=== PATIENT | male | born 1930 | race American Indian/Alaskan Native ===

== ENCOUNTER 2019-03-03 10:07 | Emergency (ER) | payer MEDICARE ==
[2019-03-03] MEDS ORDERED: ASPIRIN 325 MG TAB PO ONE (10:28)
--- NOTE | 2019-03-03 11:03 | XRay Report ---
CHEST 2 VIEWS INDICATION: Chest Pain. COMPARISON: None FINDINGS: Support devices: None. Heart: Within normal limits. Lungs/pleura: No acute air space or interstitial disease. No pneumothorax. Trace left pleural effusi on is suspected. Additional findings: None. IMPRESSION: Trace left pleural effusion. Signer Name: Kwame Ramos Jr, MD Signed: 03/03/2019 10:59 AM Workstation Name: [id number]
--- NOTE | 2019-03-03 11:11 | Emergency Department Report ---
ED Chest Pain HPI - General Chief Complaint: Chest Pain Stated Complaint: CHEST PAIN Time Seen by Provider: 03/03/19 10:37 Source: patient, family Mode of arrival: Ambulatory Limitations: Language Barrier - History of Present Illness Initial Comments: 88-year-old male presents to the emergency department with complaint of some midsternal chest pain and shortness of breath that started while he was at [facility] [[email or web address]], nearby, getting blood work done ordered by his PCP, Dr Crawford. Patient has a past mental history of diet-controlled diabetes, GERD, migraines, hy pertension, chronic kidney disease, coronary artery disease with cardiac stents. His district engineer is Dr. Laz Zuniga. He did not take anything for her symptoms prior to presentation. The patient did not take his blood pressure medications this morning in anticipation of having the blood work done. He was found have very elevated blood pressure when it was checked at the lab when the patient's symptoms began. He then took his losartan and Lopressor. No recent travel or sick contacts at home. - Related Data Home Medications Medication Instructions Recorded Confirmed Last Taken AtorvaSTATin [Lipitor] 40 mg PO QHS 04/25/18 03/03/19 04/27/18 08:30 Clopidogrel Bisulfate [Plavix] 75 mg PO DAILY 04/25/18 03/03/19 7 Days Ago ~04/20/18 Hydralazine HCl 50 mg PO QID 04/25/18 03/03/19 04/27/18 08:30 Metoprolol [Lopressor] 100 mg PO QDAY 04/25/18 03/03/19 04/27/18 08:30 Losartan Potassium 100 mg PO QDAY 03/03/19 03/03/19 Unknown Previous Rx's Medication Instructions Recorded Last Taken Type ISOSORBIDE MONOnitrate [Imdur ER] 60 mg PO QDAY #30 tablet 03/03/19 Unknown Rx amLODIPine [Norvasc] 10 mg PO DAILY #30 03/03/19 Unknown Rx Allergies Allergy/AdvReac Type Severity Reaction Status Date / Time No Known Allergies Allergy Verified 04/25/18 14:35 Heart Score - HEART Score History: Slightly suspicious EKG: Non-specific Age: > 65 Risk factors: > 3 risk factors or hx of atherosclerotic disease Troponin: 1-3x normal limit HEART Score: 6 - Critical Actions Critical Actions: 4-6 pts:12-16.6% risk of adverse cardiac event. Should be admitted ED Review of Systems ROS: Stated complaint: CHEST PAIN Other details as noted in HPI Comment: All other systems reviewed and negative Constitutional: denies: chills, fever Eyes: denies: eye pain, vision change ENT: denies: ear pain, throat pain Respiratory: shortness of breath. denies: cough Cardiovascular: chest pain. denies: palpitations Gastrointestinal: denies: abdominal pain, vomiting Genitourinary: denies: dysuria, discharge Musculoskeletal: denies: back pain, arthralgia Skin: denies: rash, lesions Neurological: denies: headache, weakness ED Past Medical Hx - Past Medical History Previous Medical History?: Yes Hx Hypertension: Yes (X 25 YRS) Hx Diabetes: Yes (DIET CONTROLLED) Hx GERD: Yes Hx Renal Disease: Yes (CKD) Hx Headaches / Migraines: Yes (MIGRAINES) Hx Tuberculosis: Yes (POSITIVE SKIN TEST , NO TX , NEGATIVE CXR-20YRS AGO) Hx HIV: No - Surgical History Past Surgical History?: Yes Hx Coronary Stent: Yes (PLACED OVER 20 YRS AGO.) - Social History Smoking Status: Former Smoker Substance Use Type: None - Medications Home Medications: Home Medications Medication Instructions Recorded Confirmed Last Taken Type AtorvaSTATin [Lipitor] 40 mg PO QHS 04/25/18 03/03/19 04/27/18 08:30 History Clopidogrel Bisulfate [Plavix] 75 mg PO DAILY 04/25/18 03/03/19 7 Days Ago History ~04/20/18 Hydralazine HCl 50 mg PO QID 04/25/18 03/03/19 04/27/18 08:30 History Metoprolol [Lopressor] 100 mg PO QDAY 04/25/18 03/03/19 04/27/18 08:30 History ISOSORBIDE MONOnitrate [Imdur ER] 60 mg PO QDAY #30 tablet 03/03/19 Unknown Rx Losartan Potassium 100 mg PO QDAY 03/03/19 03/03/19 Unknown History amLODIPine [Norvasc] 10 mg PO DAILY #30 03/03/19 Unknown Rx ED Physical Exam - General Limitations: Language Barrier - Other Other exam information: GENERAL: The patient is well-developed well-nourished. HENT: Normocephalic. Atraumatic. Patient has moist mucous membranes. EYES: Extraocular motions are intact. NECK: Supple. Trachea is midline. CHEST/LUNGS: Clear to auscultation. There is no respiratory distress noted. HEART/CARDIOVASCULAR: Regular. There is no tachycardia. There is no murmur. ABDOMEN: Abdomen is soft, nontender. Patient has normal bowel sounds. There is no abdominal distention. SKIN: Skin is warm and dry. NEURO: The patient is awake, alert, and oriented. The patient is cooperative. The patient has no focal neurologic deficits. Normal speech. MUSCULOSKELETAL: There is no tenderness or deformity. There is no limitation range of motion. There is no evidence of acute injury. ED Course Vital Signs 03/03/19 03/03/19 03/03/19 10:24 11:43 12:02 Temperature 97.7 F Pulse Rate 83 71 Respiratory 20 16 Rate Blood Pressure 225/102 188/98 Blood Pressure 226/81 [Left] O2 Sat by Pulse 97 96 Oximetry 03/03/19 03/03/19 03/03/19 13:23 13:41 13:42 Temperature Pulse Rate 87 83 83 Respiratory 16 Rate Blood Pressure 194/86 194/86 Blood Pressure 194/86 [Left] O2 Sat by Pulse 96 Oximetry - Reevaluation(s) Reevaluation #1: 03/03/19 15:20 Lab Results 03/03/19 03/03/19 03/03/19 Range/Units 10:50 10:50 10:50 WBC 3.9 L (4.5-11.0) K/mm3 RBC 4.46 (3.65-5.03) M/mm3 Hgb 13.0 (11.8-15.2) gm/dl Hct 39.2 (35.5-45.6) % MCV 88 (84-94) fl MCH 29 (28-32) pg MCHC 33 (32-34) % RDW 15.6 H (13.2-15.2) % Plt Count 175 (140-440) K/mm3 Lymph % (Auto) 19.4 (13.4-35.0) % Posey % (Auto) 9.4 H (0.0-7.3) % Eos % (Auto) 3.4 (0.0-4.3) % Baso % (Auto) 1.2 (0.0-1.8) % Lymph # 0.8 L (1.2-5.4) K/mm3 Posey # 0.4 (0.0-0.8) K/mm3 Eos # 0.1 (0.0-0.4) K/mm3 Baso # 0.0 (0.0-0.1) K/mm3 Seg Neutrophils % 66.6 (40.0-70.0) % Seg Neutrophils # 2.6 (1.8-7.7) K/mm3 D-Dimer 416.43 H (0-234) ng/mlDDU Sodium 141 (137-145) mmol/L Potassium 3.6 (3.6-5.0) mmol/L Chloride 102.1 (98-107) mmol/L Carbon Dioxide 24 (22-30) mmol/L Anion Gap 19 mmol/L BUN 28 H (9-20) mg/dL Creatinine 2.4 H (0.8-1.5) mg/dL Estimated GFR 31 ml/min BUN/Creatinine Ratio 12 % Glucose 118 H (75-100) mg/dL Calcium 9.7 (8.4-10.2) mg/dL Troponin T 0.018 (0.00-0.029) ng/mL NT-Pro-B Natriuret Pep (0-900) pg/mL Triglycerides (2-149) mg/dL Cholesterol (50-199) mg/dL LDL Cholesterol Direct (50-130) mg/dL HDL Cholesterol (40-59) mg/dL Cholesterol/HDL Ratio % 03/03/19 03/03/19 Range/Units 10:50 13:24 WBC (4.5-11.0) K/mm3 RBC (3.65-5.03) M/mm3 Hgb (11.8-15.2) gm/dl Hct (35.5-45.6) % MCV (84-94) fl MCH (28-32) pg MCHC (32-34) % RDW (13.2-15.2) % Plt Count (140-440) K/mm3 Lymph % (Auto) (13.4-35.0) % Posey % (Auto) (0.0-7.3) % Eos % (Auto) (0.0-4.3) % Baso % (Auto) (0.0-1.8) % Lymph # (1.2-5.4) K/mm3 Posey # (0.0-0.8) K/mm3 Eos # (0.0-0.4) K/mm3 Baso # (0.0-0.1) K/mm3 Seg Neutrophils % (40.0-70.0) % Seg Neutrophils # (1.8-7.7) K/mm3 D-Dimer (0-234) ng/mlDDU Sodium (137-145) mmol/L Potassium (3.6-5.0) mmol/L Chloride (98-107) mmol/L Carbon Dioxide (22-30) mmol/L Anion Gap mmol/L BUN (9-20) mg/dL Creatinine (0.8-1.5) mg/dL Estimated GFR ml/min BUN/Creatinine Ratio % Glucose (75-100) mg/dL Calcium (8.4-10.2) mg/dL Troponin T 0.043 H D (0.00-0.029) ng/mL NT-Pro-B Natriuret Pep 875.5 (0-900) pg/mL Triglycerides 58 (2-149) mg/dL Cholesterol 145 (50-199) mg/dL LDL Cholesterol Direct 78 (50-130) mg/dL HDL Cholesterol 66 H (40-59) mg/dL Cholesterol/HDL Ratio 2.19 % - Consultations Consultation #1: I spoke with SHARRON Garcia for [facility] cardiology, and Dr. Lopez, regarding this patient's presentation and lab and imaging results. Since the patient is asymptomatic and pain-free, they feel that the patient is safe for discharge home at this time. They are aware of the slightly elevated second troponin of 0.043 but do not feel it is statistically significant as it is less than 0.1. They have set the patient up for a lexicon stress test to be done on Wednesday and the and then a follow-up appointment with their district engineer, Dr. Zuniga, one week later. 03/03/19 15:18 LETY score - Lety Score Age > 65: (1) Yes Aspirin use within the Past 7 Days: (0) No 3 or more CAD Risk Factors: (1) Yes 2 or more Angina events in past 24 hrs: (0) No Known CAD with more than 50% Stenosis: (0) No Elevated Cardiac Markers: (0) No ST Deviation Greater than 0.5mm: (0) No LETY Score: 2 ED Medical Decision Making - Lab Data Result diagrams: 03/03/19 10:50 03/03/19 10:50 - EKG Data -: EKG Interpreted by Me EKG shows normal: sinus rhythm, axis, intervals (prolonged NC interval), QRS co mplexes, ST-T waves ( t wave inversions to lateral leads) Rate: normal - EKG Data When compared to previous EKG there are: previous EKG unavailable Interpretation: other (sinus rhythm, prolonged NC interval, T-wave inversions to the lateral leads. No ST elevation IL) - Radiology Data Radiology results: image reviewed interpreted by me: Chest x-ray does not show any acute process. There are no pleural effusions, obvious pneumonia and there is no pneumothorax. Ventilation perfusion scan is low probability for a pulmonary embolism. - Medical Decision Making This patient presents after having some transient midsternal chest pain when he was giving blood at the lab prior to arrival. Upon presentation the pain has resolved and he is asymptomatic. He does have some elevated blood pressure but had not taken his blood pressure medications secondary to getting the blood draw done. EKG does not show any signs of ST elevation IL. Chest x-ray does not show any pneumothorax, pneumonia, focal consolidation, or any other obvious acute process. Labs are mostly unremarkable. First troponin negative. The second troponin went up to 0.043 but cardiology is not impressed or concerned. D-dimer slightly elevated an equivocal and therefore ventilation/perfusion scan was done that came back low probability for a pulmonary embolism. He was given some medication and his blood pressure came down to a more reasonable level. He was reevaluated multiple times over multiple hours and remains asymptomatic and stable. Cardiology feels comfortable with the patient's discharge and follow- up outpatient stress test appointment on Wednesday. The patient has been instructed to return to the closest emergency department immediately with any return of his chest pain or with any acute distress. - Differential Diagnosis IL, PE, costochondritis, GERD Critical Care Time: No Critical care attestation.: If time is entered above; I have spent that time in minutes in the direct care of this critically ill patient, excluding procedure time. ED Disposition Clinical Impression: Chest pain Qualifiers: Chest pain type: unspecified Qualified Code(s): R07.9 - Chest pain, unspecified Hypertension Qualifiers: Hypertension type: essential hypertension Qualified Code(s): I10 - Essential (primary) hypertension Disposition: - TO HOME OR SELFCARE Is pt being admited?: No Condition: Stable Instructions: Chest Pain (ED), Hypertension (ED) Additional Instructions: Please follow-up with [facility] heart cardiology in the [place] office on Wednesday03/06/19 at 10:45 AM for a stress test. He will also need to follow-up with Dr. Zuniga in the [place] office one week later, on 03/13/19 at 11:15 AM. Return to the emergency department immediately with any return of your chest pain, or if any acute distress. Prescriptions: ISOSORBIDE MONOnitrate [Imdur ER] 60 mg PO QDAY #30 tablet amLODIPine [Norvasc] 10 mg PO DAILY #30 Referrals: [facility] [Provider Group] - 03/06/19 10:45 am Time of Disposition: 15:23
[2019-03-03 11:25] LABS: Calcium 9.7 mg/dL (8.4-10.2)
[2019-03-03 11:35] LABS: Basophils % (Auto) 1.2 % (0.0-1.8); Eosinophils # (Auto) 0.1 K/mm3 (0.0-0.4); Eosinophils % (Auto) 3.4 % (0.0-4.3); Hematocrit 39.2 % (35.5-45.6); Lymphocytes # (Auto) 0.8 K/mm3 (1.2-5.4); Lymphocytes % (Auto) 19.4 % (13.4-35.0); Mean Corpuscular HGB Conc 33 % (32-34); Mean Corpuscular Volume 88 fl (84-94); Monocytes # (Auto) 0.4 K/mm3 (0.0-0.8); Monocytes % (Auto) 9.4 % (0.0-7.3); Platelet Count 175 K/mm3 (140-440); Red Blood Count 4.46 M/mm3 (3.65-5.03); Red Cell Distribution Width 15.6 % (13.2-15.2)
[2019-03-03] MEDS ORDERED: hydrALAZINE 20 MG/1 ML INJ IV ONE ×2 (11:45→12:35)
--- NOTE | 2019-03-03 12:58 | Nuclear Medicine Report ---
Nuclear medicine ventilation/perfusion lung scan Indication: Shortness of breath Technique: 14.5 mCi of Xenon-133 were given by inhalation. 5.5 mCi of Tc 99m MAA were given by IV. Findings: Comparison with chest radiograph from earlier today. Wash-in, equilibrium, and wash-out phases of ventilation are normal. No air-trapping is seen. No perfusion defects are noted. Impression: Low probability for pulmonary embolism. Signer Name: Zion Pelaez MD Signed: 03/03/2019 12:54 PM Workstation Name: [id number]
[2019-03-03 13:23] VITALS: BP 194/86
[2019-03-03] MEDS ORDERED: amLODIPine 5 MG TAB PO ONE (13:24)
--- NOTE | 2019-03-03 13:30 | Event Note ---
Date: 03/03/19 Pt presented with c/o atypical cp since this morning and hypertensive urgency. ECG with no acute ischemic changes, trop minimally elevated x 1 set, chest pain currently resolved. Obtain second set of Fatimah and if Fatimah remain negative for AMI, pt may discharge from cardiology standpoint. Optimize BPs - initiate norvasc 5mg daily and Imdur 60mg daily. Follow up in our [place] office for lexiscan MPI stress test on 03/06/2019 @ 10:45AM. Follow up in our [place] office with Dr. Zuniga on 03/13/2019 @ 11:15AM. Janette SANDHU NP / DR. LEIVA
[2019-03-03 14:23] LABS: Chol/HDL Ratio 2.19 %
== END 2019-03-03 15:16 | disposition home or self-care (01) ==
LOC: ED 10:07
DX: I12.9 Hypertensive chronic kidney disease with stage 1 through stage 4 chronic kidney disease, or unspecified chronic kidney disease (principal); E11.22 Type 2 diabetes mellitus with diabetic chronic kidney disease; N18.9 Chronic kidney disease, unspecified; Z79.899 Other long term (current) drug therapy; G43.909 Migraine, unspecified, not intractable, without status migrainosus; Z87.891 Personal history of nicotine dependence
CPT/HCPCS: 36415; 71046; 78582; 80048; 80061; 83880; 84484; 85025; 85379; 93005; 93010; 96374; 96376; 99284; A9540; A9558; J0360

== ENCOUNTER 2019-03-07 12:53 | Inpatient (IN) | payer MEDICARE ==
[2019-03-07] MEDS ORDERED: ASPIRIN PO ONE (13:01)
--- NOTE | 2019-03-07 13:36 | XRay Report ---
CHEST 1 VIEW INDICATION / CLINICAL INFORMATION: Chest Pain. COMPARISON: 03/03/2019 FINDINGS: SUPPORT DEVICES: None. HEART / MEDIASTINUM: No significant abnormality. LUNGS / PLEURA: There is a very small left pleural effusion. There is mild basilar atelectasis.. No pneumothorax. ADDITIONAL FINDINGS: No significant additional findings. IMPRESSION: 1. There is a very small left pleural effusion. There is mild left basilar atelectasis. Signer Name: Fly Bee MD Signed: 03/07/2019 1:32 PM Workstation Name: [id number]
--- NOTE | 2019-03-07 14:09 | Emergency Department Report ---
ED Chest Pain HPI - General Chief Complaint: Chest Pain Stated Complaint: CHEST PAIN Time Seen by Provider: 03/07/19 13:19 Source: patient, family, EMS Mode of arrival: Ambulatory Limitations: No Limitations - History of Present Illness Initial Comments: Patient is a 88-year-old male with history of coronary artery disease, status post stent in . Patient presented to the ER complaining of chest pain, substernal to epigastric area for the last 3 days. Patient was seen here 3 days ago and consulted on the patient and patient discharged home to follow-up with his janitor and cleaner. Patient had a VQ scan which showed low probability at that time. Patient family stated that they went to the cardiology office yesterday and had a stress test but they don't know the result. Patient describes his pain as tightness with no radiation. Patient stated that pain is similar to what he had when he came here 3 days ago. Patient denied any fever, chills, cough or shortness of breath. MD Complaint: chest pain -: days(s) Pain Location: epigastric Pain Radiation: none Quality: sharp Improves With: nothing - Related Data Home Medications Medication Instructions Recorded Confirmed Last Taken AtorvaSTATin [Lipitor] 40 mg PO QHS 04/25/18 03/03/19 04/27/18 08:30 Clopidogrel Bisulfate [Plavix] 75 mg PO DAILY 04/25/18 03/03/19 7 Days Ago ~04/20/18 Hydralazine HCl 50 mg PO QID 04/25/18 03/03/19 04/27/18 08:30 Metoprolol [Lopressor] 100 mg PO QDAY 04/25/18 03/03/19 04/27/18 08:30 Losartan Potassium 100 mg PO QDAY 03/03/19 03/03/19 Unknown Previous Rx's Medication Instructions Recorded Last Taken Type ISOSORBIDE MONOnitrate [Imdur ER] 60 mg PO QDAY #30 tablet 03/03/19 Unknown Rx amLODIPine [Norvasc] 10 mg PO DAILY #30 03/03/19 Unknown Rx Allergies Allergy/AdvReac Type Severity Reaction Status Date / Time No Known Allergies Allergy Verified 04/25/18 14:35 Heart Score - HEART Score History: Moderately suspicious EKG: Non-specific Age: > 65 Risk factors: > 3 risk factors or hx of atherosclerotic disease Troponin: < normal limit HEART Score: 6 - Critical Actions Critical Actions: 4-6 pts:12-16.6% risk of adverse cardiac event. Should be admitted ED Review of Systems ROS: Stated complaint: CHEST PAIN Other details as noted in HPI Comment: All other systems reviewed and negative Constitutional: denies: chills, fever Respiratory: denies: cough, shortness of breath, SOB with exertion, wheezing Cardiovascular: chest pain. denies: palpitations Gastrointestinal: abdominal pain. denies: nausea, vomiting Musculoskeletal: denies: back pain Neurological: denies: headache, weakness ED Past Medical Hx - Past Medical History Hx Hypertension: Yes (X 25 YRS) Hx Diabetes: Yes (DIET CONTROLLED) Hx GERD: Yes Hx Renal Disease: Yes (CKD) Hx Headaches / Migraines: Yes (MIGRAINES) Hx Tuberculosis: Yes (POSITIVE SKIN TEST , NO TX , NEGATIVE CXR-20YRS AGO) Hx HIV: No - Surgical History Hx Coronary Stent: Yes (PLACED OVER 20 YRS AGO.) - Social History Smoking Status: Former Smoker Substance Use Type: None - Medications Home Medications: Home Medications Medication Instructions Recorded Confirmed Last Taken Type AtorvaSTATin [Lipitor] 40 mg PO QHS 04/25/18 03/03/19 04/27/18 08:30 History Clopidogrel Bisulfate [Plavix] 75 mg PO DAILY 04/25/18 03/03/19 7 Days Ago History ~04/20/18 Hydralazine HCl 50 mg PO QID 04/25/18 03/03/19 04/27/18 08:30 History Metoprolol [Lopressor] 100 mg PO QDAY 04/25/18 03/03/19 04/27/18 08:30 History ISOSORBIDE MONOnitrate [Imdur ER] 60 mg PO QDAY #30 tablet 03/03/19 Unknown Rx Losartan Potassium 100 mg PO QDAY 03/03/19 03/03/19 Unknown History amLODIPine [Norvasc] 10 mg PO DAILY #30 03/03/19 Unknown Rx ED Physical Exam - General Limitations: No Limitations General appearance: alert, in no apparent distress - Head Head exam: Present: atraumatic, normocephalic, normal inspection - Eye Eye exam: Present: normal appearance, PERRL - ENT ENT exam: Present: normal exam, normal orophraynx, mucous membranes moist - Neck Neck exam: Present: normal inspection, full ROM. Absent: tenderness, meningismus, lymphadenopathy, thyromegaly - Respiratory Respiratory exam: Present: normal lung sounds bilaterally - Cardiovascular Cardiovascular Exam: Present: regular rate, normal rhythm, normal heart sounds - GI/Abdominal GI/Abdominal exam: Present: soft, normal bowel sounds. Absent: distended, tenderness, guarding, rebound, rigid, organomegaly, mass, bruit, pulsatile mass, hernia - Extremities Exam Extremities exam: Present: normal inspection, full ROM, normal capillary refill. Absent: tenderness, pedal edema, joint swelling, calf tenderness - Back Exam Back exam: Present: normal inspection, full ROM. Absent: CVA tenderness (R), CVA tenderness (L), muscle spasm, paraspinal tenderness, vertebral tenderness - Neurological Exam Neurological exam: Present: alert, oriented X3, CN II-XII intact, reflexes normal - Psychiatric Psychiatric exam: Present: normal mood - Skin Skin exam: Present: warm, intact, normal color ED Course Vital Signs 03/07/19 03/07/19 12:58 14:58 Temperature 98 F Pulse Rate 98 H 77 Respiratory 16 15 Rate Blood Pressure 169/74 Blood Pressure 122/57 [Right] O2 Sat by Pulse 100 97 Oximetry - Consultations Consultation #1: 03/07/19 14:50 I discussed the patient with Noelle Crowder with Dr. Roberts. LETY score - Lety Score Age > 65: (1) Yes Aspirin use within the Past 7 Days: (0) No 3 or more CAD Risk Factors: (1) Yes 2 or more Angina events in past 24 hrs: (0) No Known CAD with more than 50% Stenosis: (0) No Elevated Cardiac Markers: (0) No ST Deviation Greater than 0.5mm: (0) No LETY Score: 2 ED Medical Decision Making - Lab Data Result diagrams: 03/07/19 13:46 03/07/19 13:46 - EKG Data -: EKG Interpreted by Me EKG shows normal: sinus rhythm Rate: normal - EKG Data Interpretation: no acute changes - Radiology Data Radiology results: report reviewed - Medical Decision Making Patient is a 88-year-old male with history of coronary artery disease, status post stent in . Patient presented to the ER complaining of chest pain, substernal to epigastric area for the last 3 days. Patient was seen here 3 days ago and consulted on the patient and patient discharged home to follow-up with his janitor and cleaner. Patient had a VQ scan which showed low probability at that time. Patient family stated that they went to the cardiology office yesterday and had a stress test but they don't know the result. Patient describes his pain as tightness with no radiation. Patient stated that pain is similar to what he had when he came here 3 days ago. Patient denied any fever, chills, cough or shortness of breath. EKG showed diffuse ST depression consistent with acute ischemia. X-ray show pleural effusion. Troponin slightly increased from last time. Creatinine without from 2.4-3.4. I discussed the patient was Dr. Crawford, he agreed to admit the patient to medical service for further management. Critical care attestation.: If time is entered above; I have spent that time in minutes in the direct care of this critically ill patient, excluding procedure time. ED Disposition Clinical Impression: Chest pain, Acute on chronic renal failure Disposition: OP ADMIT IP TO THIS HOSP Is pt being admited?: Yes Condition: Stable Instructions: Chest Pain (ED)
[2019-03-07 14:10] LABS: Basophils % (Auto) 0.6 % (0.0-1.8); Eosinophils # (Auto) 0.1 K/mm3 (0.0-0.4); Eosinophils % (Auto) 2.3 % (0.0-4.3); Hematocrit 36.7 % (35.5-45.6); Hemoglobin 12.2 gm/dl (11.8-15.2); Lymphocytes # (Auto) 1.2 K/mm3 (1.2-5.4); Lymphocytes % (Auto) 23.7 % (13.4-35.0); Mean Corpuscular HGB Conc 33 % (32-34); Mean Corpuscular Volume 87 fl (84-94); Monocytes # (Auto) 0.7 K/mm3 (0.0-0.8); Monocytes % (Auto) 15.1 % (0.0-7.3); Platelet Count 169 K/mm3 (140-440); Red Blood Count 4.21 M/mm3 (3.65-5.03); Red Cell Distribution Width 14.8 % (13.2-15.2)
[2019-03-07 14:23] LABS: Alanine Aminotransferase 14 units/L (7-56)
[2019-03-07 14:25] LABS: Bilirubin,Direct < 0.2 mg/dL (0-0.2)
[2019-03-07 14:27] LABS: Calcium 9.5 mg/dL (8.4-10.2)
--- NOTE | 2019-03-07 15:41 | Consultation ---
History of Present Illness Consult date: 03/07/19 Requesting physician: ERICA SOLIS Consult reason: chest pain History of present illness: The pt is an 88 YO male with a past medical history of CAD s/p PCI in , HTN, HLP, DM (diet controlled), CKD. He is followed in our office by Dr. Zuniga. He presented with c/o chest pain since Wednesday morning. Pt was having labwork drawn on Wednesday morning when he developed sudden onset chest pressure. He presented to [facility] ED where he was evaluated for chest pain and hypertensive urgency. He was noted to have elevated DDimer and underwent V/Q scan which was low prob for PE. He was discharged home to follow up in our office on Wednesday for stress testing. He underwent lexiscan MPI stress test on Wednesday, stress test is preliminarily negative. His states that pt experienced chest pain during the stress test. Last night and this morning, pt again c/o chest pressure and thus pt and pt's have returned to ED for reevaluation. Pt is also noted to have pitting BLE edema which his states has been present for the past week or so. Pt's reports that pt's BPs have been elevated at home. Pt was recently prescribed minoxidil BID and he took his first dose last night which caused "chest burning" and thus pt decided not to take any additional doses of minoxidil. Pt denies any SOB, orthopnea, palpitations, n/v, diaphoresis, dizziness or syncope. On evaluation, pt states chest pain is currently resolved. Echo done 06/2015 showed EF 55-60%, impaired relaxation, RVSP 32mmHg, mod MR, mod TR. Past History Past Medical History: CAD, diabetes, hypertension, hyperlipidemia, other (ckd) Social history: , lives with family Medications and Allergies Allergies Allergy/AdvReac Type Severity Reaction Status Date / Time No Known Allergies Allergy Verified 04/25/18 14:35 Home Medications Medication Instructions Recorded Confirmed Last Taken Type AtorvaSTATin [Lipitor] 40 mg PO QHS 04/25/18 03/03/19 04/27/18 08:30 History Clopidogrel Bisulfate [Plavix] 75 mg PO DAILY 04/25/18 03/03/19 7 Days Ago History ~04/20/18 Hydralazine HCl 50 mg PO QID 04/25/18 03/03/19 04/27/18 08:30 History Metoprolol [Lopressor] 100 mg PO QDAY 04/25/18 03/03/19 04/27/18 08:30 History ISOSORBIDE MONOnitrate [Imdur ER] 60 mg PO QDAY #30 tablet 03/03/19 Unknown Rx Losartan Potassium 100 mg PO QDAY 03/03/19 03/03/19 Unknown History amLODIPine [Norvasc] 10 mg PO DAILY #30 03/03/19 Unknown Rx Review of Systems Constitutional: no weight loss, no weight gain, no fever, no chills, no sweats Ears, nose, mouth and throat: no ear pain, no nose pain, no sinus pressure, no sinus pain Cardiovascular: chest pain, edema, high blood pressure, leg edema, no orthopnea, no palpitations, no rapid/irregular heart beat, no syncope, no lightheadedness, no shortness of breath, no dyspnea on exertion Respiratory: no cough, no shortness of breath, no dyspnea on exertion, no congestion, no wheezing, no pain on inspiration Gastrointestinal: no abdominal pain, no nausea, no vomiting, no diarrhea, no constipation, no change in bowel habits Genitourinary Male: no dysuria, no hematuria, no flank pain, no discharge, no urinary frequency, no urinary hesitancy Musculoskeletal: no neck stiffness, no neck pain, no shooting arm pain, no arm numbness/tingling, no low back pain, no shooting leg pain Integumentary: no rash, no pruritis, no redness, no sores, no wounds Neurological: no head injury, no paralysis, no weakness, no parathesias, no numbness, no tingling, no seizures, no syncope Psychiatric: no anxiety Endocrine: no cold intolerance, no heat intolerance Hematologic/Lymphatic: no easy bruising, no easy bleeding Allergic/Immunologic: no urticaria, no wheezing Physical Examination Vital Signs Temp Pulse Resp BP Pulse Ox 98 F 98 H 16 169/74 100 03/07/19 12:58 03/07/19 12:58 03/07/19 12:58 03/07/19 12:58 03/07/19 12:58 General appearance: no acute distress HEENT: Positive: PERRL, Normocephaly, Mucus Membranes Moist Neck: Positive: neck supple, trachea midline Cardiac: Positive: Reg Rate and Rhythm, S1/S2 Lungs: Positive: clear to auscultation Neuro: Positive: Grossly Intact Abdomen: Negative: Tender Male genitourinary: Negative: tender Skin: Negative: Rash Musculoskeletal: No Pain Extremities: Present: +1 Edema (BLE pitting) Results 03/07/19 13:46 03/07/19 13:46 Cardiac Enzymes 03/07/19 Range/Units 13:58 AST 18 (5-40) units/L CBC 03/07/19 Range/Units 13:46 WBC 4.9 (4.5-11.0) K/mm3 RBC 4.21 (3.65-5.03) M/mm3 Hgb 12.2 (11.8-15.2) gm/dl Hct 36.7 (35.5-45.6) % Plt Count 169 (140-440) K/mm3 Lymph # 1.2 (1.2-5.4) K/mm3 [place] # 0.7 (0.0-0.8) K/mm3 Eos # 0.1 (0.0-0.4) K/mm3 Baso # 0.0 (0.0-0.1) K/mm3 Comprehensive Metabolic Panel 03/07/19 03/07/19 Range/Units 13:46 13:58 Sodium 133 L D (137-145) mmol/L Potassium 4.2 (3.6-5.0) mmol/L Chloride 93.9 L (98-107) mmol/L Carbon Dioxide 25 (22-30) mmol/L BUN 35 H (9-20) mg/dL Creatinine 3.4 H (0.8-1.5) mg/dL Glucose 125 H (75-100) mg/dL Calcium 9.5 (8.4-10.2) mg/dL Direct Bilirubin < 0.2 (0-0.2) mg/dL Indirect Bilirubin 0.0 mg/dL AST 18 (5-40) units/L ALT 14 (7-56) units/L Alkaline Phosphatase 136 H (35-129) units/L Total Protein 7.0 (6.3-8.2) g/dL Albumin 4.0 (3.9-5) g/dL - Imaging and Cardiology Echo: pending, report reviewed (06/2015 showed EF 55-60%, impaired relaxation, RVSP 32mmHg, mod MR, mod TR.) EKG: report reviewed, image reviewed EKG interpretations - Telemetry EKG Rhythm: Sinus Rhythm - EKG Sinus rhythms and dysrhythmias: sinus rhythm Assessment and Plan S/p lexiscan MPI stress test in our office yesterday which is preliminarily negative. Optimize BPs and anti-ischemic regimen. Hold ACEI/ARB at this time in setting of renal insufficiency. Obtain echo. Troponin elevation appears c/w NSTEMI type II. Cont to trend Fatimah and f/u ECG in AM. Recommend nephrology consultation per primary. Further recs to follow per hospital course. The patient has been seen in conjunction with Dr. Nunes who agrees with the as sessment and plan of care. - Patient Problems (1) Chest pain Status: Acute (2) Hypertensive urgency Status: Acute (3) Acute on chronic renal failure Status: Acute (4) NSTEMI (non-ST elevated myocardial infarction) Status: Acute Plan to address problem: type II (5) Abnormal ECG Status: Acute (6) CAD (coronary artery disease) Status: Chronic (7) Stented coronary artery Status: Chronic (8) Hyperlipidemia Status: Chronic (9) Diabetes Status: Chronic (10) Hyponatremia Status: Acute
--- NOTE | 2019-03-07 20:16 | History and Physical Report ---
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 Patient describes chest pain as pressure in the retrosternal area and nonradiating no associated diaphoresis and no nausea or vomiting. Patient has history of hypertension, coronary artery disease, hyperlipidemia and previous PCI in the 1989 patient also being worked up as outpatient for ongoing chronic renal failure. Patient has also has some difficulty with outpatient blood pressure control. Patient was seen in the emergency department 3 days on account of similar chest pain at present is evaluated including VQ scan to evaluate for pulmonary embolism was conducted and negative and patient was discharged home. Patient subsequently had Lexiscan stress test performed in his [employer] office yesterday and the preliminary report was stated to be negative . Patient was subsequently directed to report back to the medicine today for reg ular request of chest pain following recurrence of chest pain described as retrosternal nonradiating and associated shortness of breath and patient is now being readmitted for further workup of his ongoing chest pain Past History Past Medical History: CAD, diabetes, hypertension, hyperlipidemia, other (ckd) Social history: , lives with family Medications and Allergies Allergies Allergy/AdvReac Type Severity Reaction Status Date / Time No Known Allergies Allergy Verified 04/25/18 14:35 Home Medications Medication Instructions Recorded Confirmed Last Taken Type AtorvaSTATin [Lipitor] 40 mg PO QHS 04/25/18 03/07/19 03/06/19 History Clopidogrel Bisulfate [Plavix] 75 mg PO DAILY 04/25/18 03/07/19 03/06/19 History Hydralazine HCl 50 mg PO QID 04/25/18 03/07/19 03/06/19 History Metoprolol [Lopressor] 100 mg PO QDAY 04/25/18 03/07/19 03/06/19 History ISOSORBIDE MONOnitrate [Imdur ER] 60 mg PO QDAY #30 tablet 03/03/19 03/07/19 03/06/19 Rx Losartan Potassium 100 mg PO QDAY 10/11/19 10/15/19 10/14/19 History amLODIPine [Norvasc] 10 mg PO DAILY #30 03/03/19 03/07/19 03/06/19 Rx Active Meds: Active Medications Amlodipine Besylate (Norvasc) 10 mg PO DAILY [facility] Aspirin (Aspirin) 325 mg PO QDAY [facility] Atorvastatin Calcium (Lipitor) 40 mg PO QHS [facility] Hydralazine HCl (Apresoline) 50 mg PO TID [facility] Isosorbide Mononitrate (Imdur) 60 mg PO QDAY [facility] Metoprolol Succinate (Toprol Xl) 100 mg PO DAILY [facility] Exam - Physical Exam Narrative exam: GENERAL:[] HEENT: [Head examination showed normocephalic. Patient is not pale, not jau ndiced, and not cyanosed.] [Mucous membrane is moist, pharynx is clear, no exudates or hemorrhage. Dentition is normal.] NECK: [Supple. Neck showed good range of motion. There is no adenopathy noted. No jugular venous distention and no thyromegaly.] [Neck auscultation showed no carotid bruit.] CHEST/LUNGS: [Good air exchange bilaterally. Clear to auscultation. There is no respiratory distress noted. Chest percussion normal, symmetrical chest movements with no chest wall tenderness.] HEART/CARDIOVASCULAR: [No murmur. Regular rate and rhythm. S1 and S2 only, no S3 gallop, no S4.] ABDOMEN: [Abdomen is soft, nontender. Patient has normal bowel sounds. There is no abdominal distention. Liver and spleen not palpably enlarged.] SKIN: [There is no rash. There is no edema. There is no diaphoresis.] NEURO: [The patient is awake, alert, and oriented. The patient is cooperative. The patient has no focal neurologic deficits. Cranial nerves 2-12 grossly normal, power is 5/5 in all the extremities tested. The patient has normal speech and gait.] MUSCULOSKELETAL: [There is no tenderness or deformity. There is no limitation range of motion. There is no evidence of acute injury.] EXTREMITIES: [No pedal edema, no varicose veins, good peripheral pulses symmetrical and bilaterally, no pretibial edema, no finger or toe clubbing.] - Constitutional Vitals: Temp Pulse Resp BP Pulse Ox 98.9 F 72 18 136/72 100 03/07/19 16:50 03/07/19 16:50 03/07/19 18:24 03/07/19 16:50 03/07/19 16:50 Results - Labs CBC & Chem 7: 03/07/19 13:46 03/07/19 13:46 Labs: Abnormal lab results 03/07/19 03/07/19 03/07/19 Range/Units 13:46 13:46 13:58 [place] % (Auto) 15.1 H (0.0-7.3) % Sodium 133 L D (137-145) mmol/L Chloride 93.9 L (98-107) mmol/L BUN 35 H (9-20) mg/dL Creatinine 3.4 H (0.8-1.5) mg/dL Glucose 125 H (75-100) mg/dL Alkaline Phosphatase (35-129) units/L Total Creatine Kinase (55-170) units/L Troponin T 0.053 H D (0.00-0.029) ng/mL NT-Pro-B Natriuret Pep 1148 H (0-900) pg/mL 03/07/19 03/07/19 03/07/19 Range/Units 13:58 15:46 15:46 [place] % (Auto) (0.0-7.3) % Sodium (137-145) mmol/L Chloride (98-107) mmol/L BUN (9-20) mg/dL Creatinine (0.8-1.5) mg/dL Glucose (75-100) mg/dL Alkaline Phosphatase 136 H (35-129) units/L Total Creatine Kinase 201 H (55-170) units/L Troponin T 0.067 H D (0.00-0.029) ng/mL NT-Pro-B Natriuret Pep (0-900) pg/mL Assessment and Plan - Patient Problems (1) Abnormal ECG Current Visit: Yes Status: Acute (2) Acute on chronic renal failure Current Visit: Yes Status: Acute (3) Chest pain Current Visit: Yes Status: Acute (4) Hypertensive urgency Current Visit: Yes Status: Acute (5) Hyponatremia Current Visit: Yes Status: Acute
[2019-03-07] MEDS: APRESOLINE PO SCH (20:45)
[2019-03-07] MEDS: D5/0.45NS 1,000 ML IV SCH (22:26)
[2019-03-08 08:32] LABS: Calcium 9.1 mg/dL (8.4-10.2)
--- NOTE | 2019-03-08 08:43 | Progress Note ---
Assessment and Plan - Patient Problems (1) Abnormal ECG Current Visit: Yes Status: Acute Plan to address problem: Abnormal EKG and abnormal cardiac enzymes with elevated troponin. Recent stress test reported to be negative, we'll continue ongoing cardiac workup (2) Acute on chronic renal failure Current Visit: Yes Status: Acute Plan to address problem: Slight improvement in BUN and creatinine were noted with slight hydration overnight, nephrology consult to evaluate ongoing acute on chronic renal failure, patient will be a good candidate for any further work up with potential additional burden kidney including cardiac catheterization. Continue gentle hydration and monitor urinary output (3) Chest pain Current Visit: Yes Status: Acute Plan to address problem: No further chest pain reported since hospitalization cardiac workup ongoing (4) Hypertensive urgency Current Visit: Yes Status: Acute (5) Hyponatremia Current Visit: Yes Status: Acute Plan to address problem: Hyponatremia resolved with hydration will continue to monitor Subjective Date of service: 03/08/19 Principal diagnosis: chest pain, acute on chronic renal failure Interval history: Patient seen and examined to [facility], labs reviewed. Patient denied any new changes. Overnight no shortness of breath no chest pain. Patient is otherwise stable blood pressure control better Objective - Exam Narrative Exam: GENERAL:Elderly male resting comfortably in bed, not jaundiced no cyanosis HEENT: Head examination showed normocephalic. Patient is not pale, not jaundiced, and not cyanosed. Mucous membrane is moist, pharynx is clear, no exudates or hemorrhage. Dentition is normal. NECK: Supple. Neck showed good range of motion. There is no adenopathy noted. No jugular venous distention and no thyromegaly. Neck auscultation showed no carotid bruit. CHEST/LUNGS: Good air exchange bilaterally. Clear to auscultation. There is no respiratory distress noted. Chest percussion normal, symmetrical chest movements with no chest wall tenderness. HEART/CARDIOVASCULAR: No murmur. Regular rate and rhythm. S1 and S2 only, no S3 gallop, no S4. ABDOMEN: Abdomen is soft, nontender. Patient has normal bowel sounds. There is no abdominal distention. Liver and spleen not palpably enlarged. SKIN: There is no rash. There is no edema. There is no diaphoresis. NEURO: The patient is awake, alert, and oriented. The patient is cooperative. The patient has no focal neurologic deficits. Cranial nerves 2-12 grossly normal, power is 5/5 in all the extremities tested. The patient has normal speech and gait. MUSCULOSKELETAL: There is no tenderness or deformity. There is no limitation range of motion. There is no evidence of acute injury. EXTREMITIES: No pedal edema, no varicose veins, good peripheral pulses symmetrical and bilaterally, no pretibial edema, no finger or toe clubbing. - Constitutional Vitals: Vital Signs - 12hr 03/07/19 03/07/19 03/07/19 20:45 20:50 23:55 Temperature 97.8 F Pulse Rate 78 75 Pulse Rate [ 64 Apical] Respiratory 20 18 Rate Blood Pressure 148/69 138/62 O2 Sat by Pulse 97 97 Oximetry 03/08/19 04:20 Temperature 98.3 F Pulse Rate 74 Pulse Rate [ Apical] Respiratory 18 Rate Blood Pressure 135/57 O2 Sat by Pulse 97 Oximetry - Labs CBC & Chem 7: 03/07/19 13:46 03/08/19 06:51 Labs: Abnormal lab results 03/07/19 03/07/19 03/07/19 Range/Units 13:46 13:46 13:58 [place] % (Auto) 15.1 H (0.0-7.3) % Sodium 133 L D (137-145) mmol/L Chlor[place] 93.9 L (98-107) mmol/L BUN 35 H (9-20) mg/dL Creatinine 3.4 H (0.8-1.5) mg/dL Glucose 125 H (75-100) mg/dL Alkaline Phosphatase (35-129) units/L Total Creatine Kinase (55-170) units/L Troponin T 0.053 H D (0.00-0.029) ng/mL NT-Pro-B Natriuret Pep 1148 H (0-900) pg/mL 03/07/19 03/07/19 03/07/19 Range/Units 13:58 15:46 15:46 [place] % (Auto) (0.0-7.3) % Sodium (137-145) mmol/L Chloride (98-107) mmol/L BUN (9-20) mg/dL Creatinine (0.8-1.5) mg/dL Glucose (75-100) mg/dL Alkaline Phosphatase 136 H (35-129) units/L Total Creatine Kinase 201 H (55-170) units/L Troponin T 0.067 H D (0.00-0.029) ng/mL NT-Pro-B Natriuret Pep (0-900) pg/mL 03/07/19 03/08/19 Range/Units 19:53 06:51 [place] % (Auto) (0.0-7.3) % Sodium (137-145) mmol/L Chloride (98-107) mmol/L BUN 34 H (9-20) mg/dL Creatinine 3.2 H (0.8-1.5) mg/dL Glucose 108 H (75-100) mg/dL Alkaline Phosphatase (35-129) units/L Total Creatine Kinase (55-170) units/L Troponin T 0.055 H (0.00-0.029) ng/mL NT-Pro-B Natriuret Pep (0-900) pg/mL
[2019-03-08] MEDS: APRESOLINE PO SCH ×4 (08:55→21:20)
[2019-03-08] MEDS ORDERED: LOPRESSOR PO SCH (10:00)
[2019-03-08] MEDS ORDERED: NON-FORMULARY (Hydralazine Hcl [Hydralazine Hcl] 50 MG) PO SCH (10:00)
[2019-03-08] MEDS ORDERED: NON-FORMULARY (Losartan Potassium [Losartan Potassium] 100 MG) PO SCH (10:00)
--- NOTE | 2019-03-08 10:09 | Progress Note ---
Assessment and Plan S/p lexiscan MPI stress test in our office on Wednesday which was negative. Chest pain currently resolved. No plans for additional ischemic eval at this time. BPs improving. Cont to hold ACEI/ARB at this time in setting of renal insufficiency. Await echo. Await nephrology recs. The patient has been seen in conjunction with Dr. Nunes who agrees with the assessment and plan of care. - Patient Problems (1) Chest pain Current Visit: Yes Status: Resolved (2) Hypertensive urgency Current Visit: Yes Status: Acute (3) Acute on chronic renal failure Current Visit: Yes Status: Acute (4) NSTEMI (non-ST elevated myocardial infarction) Current Visit: Yes Status: Acute Plan to address problem: type II (5) Abnormal ECG Current Visit: Yes Status: Acute Plan to address problem: 2/2 LVH (6) CAD (coronary artery disease) Current Visit: Yes Status: Chronic (7) Stented coronary artery Current Visit: Yes Status: Chronic (8) Hyperlipidemia Current Visit: Yes Status: Chronic (9) Diabetes Current Visit: Yes Status: Chronic (10) Hyponatremia Current Visit: Yes Status: Acute Subjective Date of service: 03/08/19 Principal diagnosis: chest pain, acute on chronic renal failure Interval history: pt resting in bed, no current complaints, no chest pain overnight. BPs improving. at bedside. in SR on tele. Objective Vital Signs Temp Pulse Pulse Resp BP BP Pulse Ox 03/08/19 08:55 77 142/65 03/08/19 04:20 98.3 F 74 18 135/57 97 03/07/19 23:55 97.8 F 75 18 138/62 97 03/07/19 20:50 64 20 97 03/07/19 20:45 78 148/69 03/07/19 20:22 71 03/07/19 19:36 98.1 F 78 16 148/69 97 03/07/19 18:24 18 03/07/19 17:45 97.7 F 83 18 164/79 97 03/07/19 16:50 98.9 F 72 18 136/72 100 03/07/19 16:14 98.2 F 72 18 128/72 97 03/07/19 14:58 77 15 122/57 97 03/07/19 13:00 18 97 03/07/19 12:58 98 F 98 H 16 169/74 100 - Physical Examination General: No Apparent Distress HEENT: Positive: PERRL, Normocephaly, Mucus Membranes Moist Neck: Positive: neck supple, trachea midline Cardiac: Positive: Reg Rate and Rhythm, S1/S2 Lungs: Positive: Decreased Breath Sounds Neuro: Positive: Grossly Intact Abdomen: Negative: Tender Skin: Negative: Rash Musculoskeletal: No Pain Extremities: Present: edema (BLE) - Labs and Meds Cardiac Enzymes 03/07/19 Range/Units 13:58 AST 18 (5-40) units/L CBC 03/07/19 Range/Units 13:46 WBC 4.9 (4.5-11.0) K/mm3 RBC 4.21 (3.65-5.03) M/mm3 Hgb 12.2 (11.8-15.2) gm/dl Hct 36.7 (35.5-45.6) % Plt Count 169 (140-440) K/mm3 Lymph # 1.2 (1.2-5.4) K/mm3 [place] # 0.7 (0.0-0.8) K/mm3 Eos # 0.1 (0.0-0.4) K/mm3 Baso # 0.0 (0.0-0.1) K/mm3 Comprehensive Metabolic Panel 03/07/19 03/07/19 03/08/19 Range/Units 13:46 13:58 06:51 Sodium 133 L D 138 (137-145) mmol/L Potassium 4.2 4.4 (3.6-5.0) mmol/L Chloride 93.9 L 101.5 (98-107) mmol/L Carbon Dioxide 25 23 (22-30) mmol/L BUN 35 H 34 H (9-20) mg/dL Creatinine 3.4 H 3.2 H (0.8-1.5) mg/dL Glucose 125 H 108 H (75-100) mg/dL Calcium 9.5 9.1 (8.4-10.2) mg/dL Direct Bilirubin < 0.2 (0-0.2) mg/dL Indirect Bilirubin 0.0 mg/dL AST 18 (5-40) units/L ALT 14 (7-56) units/L Alkaline Phosphatase 136 H (35-129) units/L Total Protein 7.0 (6.3-8.2) g/dL Albumin 4.0 (3.9-5) g/dL - Imaging and Cardiology EKG: report reviewed, image reviewed Echo: pending, report reviewed (06/2015 showed EF 55-60%, impaired relaxation, RVSP 32mmHg, mod MR, mod TR.) - Telemetry EKG Rhythm: Sinus Rhythm - EKG Sinus rhythms and dysrhythmias: sinus rhythm
[2019-03-08] MEDS: ASPIRIN PO SCH (10:18)
[2019-03-08] MEDS: NORVASC PO SCH (10:19)
[2019-03-08] MEDS: TOPROL XL PO SCH (10:19)
[2019-03-08] MEDS: PLAVIX PO SCH (10:19)
[2019-03-08] MEDS: COZAAR PO SCH (10:19)
[2019-03-08] MEDS: PROTONIX PO SCH (10:19)
[2019-03-08] MEDS: IMDUR PO SCH (10:20)
--- NOTE | 2019-03-08 10:42 | Consultation ---
History of Present Illness - Reason for Consult Consult date: 03/08/19 acute renal failure, chronic renal failure - History of Present Illness This is a very pleasant 88-year-old black male with a past medical history significant for chronic kidney disease stage IV with baseline creatinine of 2.5- 2.7, who is seen by my colleague Dr. Mccurdy in the office. He presented to the emergency department secondary to persistent chest pain after a recent stress test. He had a stress test at the boomboat operator's office on Wednesday and per notes it was preliminarily negative. His states that during the stress test patient was complaining of chest pressure and pain. It apparently did resolve by the end of the stress test. But during the night it reoccurred for which patient was brought into the emergency department for further evaluation. Per he had also been noticing some mild increased lower extremity edema as well. Nephrology is consulted at this time for acute on chronic kidney disease. His creatinine has bumped up to about 3.4 with slight decreased at 3.2 with gentle IV fluid hydration. He was last seen by my colleague Dr. Mccurdy in October. Labs from that time showed an elevated creatinine around 2.46 with eGFR 26. He does have chronic kidney disease stage IV. Past History Past Medical History: CAD, diabetes, hypertension, hyperlipidemia, other (ckd) Social history: , lives with family Medications and Allergies Allergies Allergy/AdvReac Type Severity Reaction Status Date / Time No Known Allergies Allergy Verified 04/25/18 14:35 Home Medications Medication Instructions Recorded Confirmed Last Taken Type AtorvaSTATin [Lipitor] 40 mg PO QHS 04/25/18 03/07/19 03/06/19 History Clopidogrel Bisulfate [Plavix] 75 mg PO DAILY 04/25/18 03/07/19 03/06/19 History Hydralazine HCl 50 mg PO QID 04/25/18 03/07/19 03/06/19 History Metoprolol [Lopressor] 100 mg PO QDAY 04/25/18 03/07/19 03/06/19 History ISOSORBIDE MONOnitrate [Imdur ER] 60 mg PO QDAY #30 tablet 03/03/19 03/07/19 03/06/19 Rx Losartan Potassium 100 mg PO QDAY 03/03/19 03/07/19 03/06/19 History amLODIPine [Norvasc] 10 mg PO DAILY #30 03/03/19 03/07/19 03/06/19 Rx Active Meds: Active Medications Amlodipine Besylate (Norvasc) 10 mg PO DAILY [facility] Last Admin: 03/08/19 10:19 Dose: 10 mg Documented by: Aspirin (Aspirin) 325 mg PO QDAY [facility] Last Admin: 03/08/19 10:18 Dose: 325 mg Documented by: Atorvastatin Calcium (Lipitor) 40 mg PO QHS [facility] Last Admin: 03/07/19 22:26 Dose: 40 mg Documented by: Clopidogrel Bisulfate (Plavix) 75 mg PO DAILY [facility] Last Admin: 03/08/19 10:19 Dose: 75 mg Documented by: Guaifenesin (Guaifenesin Dm Syrup) 10 ml PO Q4H PRN PRN Reason: Cough Hydralazine HCl (Apresoline) 50 mg PO QID [facility] Dextrose/Sodium Chloride (D5/0.45ns) 1,000 mls @ 42 mls/hr IV DIRECT [facility] Last Admin: 03/07/19 22:26 Dose: 42 mls/hr Documented by: Isosorbide Mononitrate (Imdur) 60 mg PO QDAY [facility] Last Admin: 03/08/19 10:20 Dose: 60 mg Documented by: Losartan Potassium (Cozaar) 100 mg PO QDAY [facility] Last Admin: 03/08/19 10:19 Dose: 100 mg Documented by: Metoprolol Succinate (Toprol Xl) 100 mg PO DAILY [facility] Last Admin: 03/08/19 10:19 Dose: 100 mg Documented by: Pantoprazole Sodium (Protonix) 40 mg PO QDAY [facility] Last Admin: 03/08/19 10:19 Dose: 40 mg Documented by: Review of Systems All systems: negative Cardiovascular: chest pain, dyspnea on exertion Exam - Vital Signs Vital signs: Vital Signs Temp Pulse Resp BP Pulse Ox 98 F 98 H 16 169/74 100 03/07/19 12:58 03/07/19 12:58 03/07/19 12:58 03/07/19 12:58 03/07/19 12:58 - General Appearance General appearance: well-developed, well-nourished, appears stated age EENT: ATNC, PERRL Neck: Present: neck supple, trachea midline Respiratory: Clear to Ascultation Heart: regular, S1S2 Gastrointestinal: Present: normal, normoactive bowel sounds Integumentary: no rash, warm and dry Neurologic: no focal deficit, no asterixis, alert and oriented x3 Psychiatric: mood/affect appropriate, cooperative Results - Lab Results 03/07/19 13:46 03/08/19 06:51 Most recent lab results Calcium 9.1 mg/dL (8.4-10.2) 03/08/19 06:51 Assessment and Plan - Patient Problems (1) Acute on chronic renal failure Current Visit: Yes Status: Acute Qualifiers: Chronic kidney disease stage: stage 4 (severe) Plan to address problem: Patient has acute on chronic renal failure stage IV. Possibly in the setting of prerenal injury. We can continue with very gentle IV fluid hydration. We have to be cognizant of his respiratory status as well as his blood pressures which have been an issue in the past for control. Soon as we can we should try to wean him off the IV fluids as he is tolerating oral diet at this time. He is pending an echocardiogram this morning. We'll also obtain a urinalysis and urine electrolytes. (2) Hypertensive urgency Current Visit: Yes Status: Acute Plan to address problem: Continue on current antihypertensive regimen. We'll continue to monitor carefully. (3) Chest pain Current Visit: Yes Status: Resolved Plan to address problem: Chest pain is resolved at this time. Cardiology recommendations reviewed. Pending echocardiogram this morning. Troponin levels only mildly elevated. No significant issues on telemetry noted. We'll continue to monitor closely. (4) Diabetes Current Visit: Yes Status: Chronic Plan to address problem: Diabetes management per primary attending. (5) Hyperlipidemia Current Visit: Yes Status: Chronic Plan to address problem: Continue current statin therapy.
[2019-03-08 18:25] LABS: Bilirubin,Urine NEG (Negative); Blood,Urine NEG (Negative); Color,Urine Yellow (Yellow); Urobilinogen,Urine < 2.0 mg/dL (<2.0); WBC,Urine < 1.0 /HPF (0.0-6.0)
[2019-03-08] MEDS ORDERED: TYLENOL PO PRN (23:24)
--- NOTE | 2019-03-09 00:19 | Ultrasound Report ---
ULTRASOUND RENAL INDICATION: MARLI. COMPARISON: No relevant prior imaging study available. FINDINGS: RIGHT KIDNEY: Size: 8.6 cm. Echogenicity: Increased. Cortical thickness: Slightly thin. Stones: None. Hydronephrosis: None. Cyst or mass: Multiple subcentimeter cysts. LEFT KIDNEY: Size: 10.1 cm. Echogenicity: Increased. Cortical thickness: Slight thinning. Stones: None. Hydronephrosis: None. Cyst or mass: Multiple cysts ranging in size up to 12 mm. Urinary Bladder: No significant abnormality. Free Fluid: None. Additional Findings: None. IMPRESSION 1. No acute sonographic abnormality of the kidneys. Signer Name: Fran Lares MD Signed: 03/09/2019 12:14 AM Workstation Name: [id number]
[2019-03-09] MEDS: D5/0.45NS 1,000 ML IV SCH (02:14)
[2019-03-09 07:59] LABS: Calcium 9.2 mg/dL (8.4-10.2)
--- NOTE | 2019-03-09 08:18 | Progress Note ---
Assessment and Plan - Patient Problems (1) Abnormal ECG Current Visit: Yes Status: Acute (2) Acute on chronic renal failure Current Visit: Yes Status: Acute Qualifiers: Chronic kidney disease stage: stage 4 (severe) (3) Chest pain Current Visit: Yes Status: Resolved (4) Hypertensive urgency Current Visit: Yes Status: Acute (5) Hyponatremia Current Visit: Yes Status: Acute Subjective Principal diagnosis: chest pain, acute on chronic renal failure Objective - Constitutional Vitals: Vital Signs - 12hr 03/08/19 03/08/19 03/09/19 21:20 23:56 03:53 Temperature 97.6 F Pulse Rate 64 75 73 Respiratory 18 18 Rate Blood Pressure 124/52 137/61 123/59 O2 Sat by Pulse 96 97 Oximetry 03/09/19 03:55 Temperature 98.0 F Pulse Rate Respiratory Rate Blood Pressure O2 Sat by Pulse Oximetry - Labs CBC & Chem 7: 03/07/19 13:46 03/09/19 07:25 Labs: Abnormal lab results 03/08/19 03/08/19 03/09/19 Range/Units 06:51 18:00 07:25 Sodium 136 L (137-145) mmol/L Carbon Dioxide 21 L (22-30) mmol/L BUN 34 H 34 H (9-20) mg/dL Creatinine 3.2 H 3.0 H (0.8-1.5) mg/dL Glucose 108 H 106 H (75-100) mg/dL Urine Chloride 10.0 L (110-250) mmolL
--- NOTE | 2019-03-09 08:26 | Discharge Summary ---
Providers - Providers Date of Admission: 03/07/19 15:04 Date of discharge: 03/09/19 Attending physician: NEHA BERMEO 03/07/19 14:46 Consult to Physician [CONS] Stat Comment: discussed with Noelle Crowder Consulting Provider: DESEAN LEIVA Physician Instructions: Reason For Exam: chest pain 03/07/19 20:19 Consult to Physician [CONS] Urgent Comment: Consulting Provider: SHAKIRA MCCURDY Physician Instructions: Reason For Exam: acute on chronic renal failure [facility] Reason for admission: chest pain Condition: Stable Pertinent studies: Echocardiogram report still pending Ultrasound of the kidney shows no sonographic evidence of abnormalities in the kidneys EKG showed an abnormal ST and T-wave abnormalities Hospital course: 58-year-old male patient admitted to the emergency room on account of retrosternal chest pain which had been crying intermittently over the last 2 days prior to admission. Patient had a Lexiscan stress test performed in his sales planning analyst's office which was reported to be negative. Patient however continued to have chest pain late in the night home he was therefore returned back to the emergency room where he was now admitted for further evaluation. Patient in for initial EKG was abnormal in the emergency room, his troponin was elevated and his CK level was also marginally elevated and the patient was being evaluated for further evidence of cardiac ischemia. Upon evaluation in the emergency room his creatinine level was also noted increased from 2.5-3.4 patient has previous history of chronic renal insufficiency stage IV for which he's been followed on outpatient basis by his manager human resources Dr. Mccurdy. Patient had echocardiogram which is yet to be reported. Patient also had ultrasound of the kidneys which did not show any abnormalities. He has remained chest pain-free since hospitalization. He has also been evaluated by cardiologists and no further cardiac work up is a discharge especially in view office acute on chronic renal failure is not a candidate for contrast load from cardiac catheterization. Patient has been given gentle hydration over the last 48 hours with gradual improvement in the urine and creatinine with creatinine level down now to 3.0. Patient will be discharged for further outpatient management and follow-up with sales planning analyst and manager human resources. No new changes in medication at this time and presented to follow up with his sales planning analyst's Disposition: - TO HOME OR SELFCARE - Discharge Diagnoses (1) Abnormal ECG Status: Chronic (2) Acute on chronic renal failure Status: Chronic Qualifiers: Chronic kidney disease stage: stage 4 (severe) (3) Chest pain Status: Resolved Qualifiers: Chest pain type: other chest pain Qualified Code(s): R07.89 - Other chest pain; R07.8 - Other chest pain (4) Hypertensive urgency Status: Chronic (5) Hyponatremia Status: Resolved Core Measure Documentation - Palliative Care Palliative Care/ Comfort Measures: Not Applicable - Core Measures Any of the following diagnoses?: history only Exam - Physical Exam Narrative exam: GENERAL:Elderly male resting comfortably in bed, not jaundiced no cyanosis HEENT: Head examination showed normocephalic. Patient is not pale, not jaundiced, and not cyanosed. Mucous membrane is moist, pharynx is clear, no exudates or hemorrhage. Dentition is normal. NECK: Supple. Neck showed good range of motion. There is no adenopathy noted. No jugular venous distention and no thyromegaly. Neck auscultation showed no carotid bruit. CHEST/LUNGS: Good air exchange bilaterally. Clear to auscultation. There is no respiratory distress noted. Chest percussion normal, symmetrical chest movements with no chest wall tenderness. HEART/CARDIOVASCULAR: No murmur. Regular rate and rhythm. S1 and S2 only, no S3 gallop, no S4. ABDOMEN: Abdomen is soft, nontender. Patient has normal bowel sounds. There is no abdominal distention. Liver and spleen not palpably enlarged. SKIN: There is no rash. There is no edema. There is no diaphoresis. NEURO: The patient is awake, alert, and oriented. The patient is cooperative. The patient has no focal neurologic deficits. Cranial nerves 2-12 grossly normal, power is 5/5 in all the extremities tested. The patient has normal speech and gait. MUSCULOSKELETAL: There is no tenderness or deformity. There is no limitation range of motion. There is no evidence of acute injury. EXTREMITIES: No pedal edema, no varicose veins, good peripheral pulses symmetrical and bilaterally, no pretibial edema, no finger or toe clubbing. - Constitutional Vitals: Temp Pulse Resp BP Pulse Ox 98.0 F 73 18 123/59 97 03/09/19 03:55 03/09/19 03:53 03/09/19 03:53 03/09/19 03:53 03/09/19 03:53 Plan Activity: no restrictions Weight Bearing Status: Full Weight Bearing Diet: low salt, low protein, low carbohydrate [facility] [Primary Care Provider] - 7 Days NEHA BERMEO MD [Staff Physician] - 7 Days DESEAN LEIVA MD [Staff Physician] - 7 Days SHAKIRA MCCURDY MD [Staff Physician] - 7 Days
[2019-03-09] MEDS: COZAAR PO SCH (09:24)
[2019-03-09] MEDS: IMDUR PO SCH (09:24)
[2019-03-09] MEDS: PLAVIX PO SCH (09:24)
[2019-03-09] MEDS: ASPIRIN PO SCH (09:24)
[2019-03-09] MEDS: NORVASC PO SCH (09:24)
[2019-03-09] MEDS: TOPROL XL PO SCH (09:24)
[2019-03-09] MEDS: APRESOLINE PO SCH ×2 (09:24→13:36)
[2019-03-09] MEDS: PROTONIX PO SCH (09:25)
--- NOTE | 2019-03-09 11:07 | Progress Note ---
Assessment and Plan S/p lexiscan MPI stress test in our office on Wednesday which was negative. Chest pain currently resolved. No plans for additional ischemic eval at this time. BPs improving. Cont to hold ACEI/ARB at this time in setting of renal insufficiency. Echo reviewed - EF 55-60%, impaired relaxation, mild MR. Currently stable cardiac status. Pt may discharge home from cardiology standpoint on current cardiac regimen. Recommend pt follow up in our office with Dr. Zuniga within 1-2 weeks of hospital discharge ([phone]). The patient has been seen in conjunction with Dr. Nunes who agrees with the assessment and plan of care. - Patient Problems (1) Chest pain Current Visit: Yes Status: Resolved Qualifiers: Chest pain type: other chest pain Qualified Code(s): R07.89 - Other chest pain; R07.8 - Other chest pain (2) Hypertensive urgency Current Visit: Yes Status: Resolved (3) Acute on chronic renal failure Current Visit: Yes Status: Chronic Qualifiers: Chronic kidney disease stage: stage 4 (severe) (4) NSTEMI (non-ST elevated myocardial infarction) Current Visit: Yes Status: Acute Plan to address problem: type II (5) Abnormal ECG Current Visit: Yes Status: Chronic Plan to address problem: 2/2 LVH (6) CAD (coronary artery disease) Current Visit: Yes Status: Chronic (7) Stented coronary artery Current Visit: Yes Status: Chronic (8) Hyperlipidemia Current Visit: Yes Status: Chronic (9) Diabetes Current Visit: Yes Status: Chronic (10) Hyponatremia Current Visit: Yes Status: Resolved Subjective Date of service: 03/09/19 Principal diagnosis: chest pain, acute on chronic renal failure Interval history: pt resting up in chair, no current complaints, no chest pain overnight. appears well. at bedside. in SR on tele. Objective Last Vital Signs Temp 98.2 F 03/09/19 08:03 Pulse 77 03/09/19 10:27 Resp 20 03/09/19 08:03 BP 163/75 03/09/19 08:03 Pulse Ox 99 03/09/19 08:03 - Physical Examination General: No Apparent Distress HEENT: Positive: PERRL, Normocephaly, Mucus Membranes Moist Neck: Positive: neck supple, trachea midline Cardiac: Positive: Reg Rate and Rhythm, S1/S2 Lungs: Positive: Decreased Breath Sounds Neuro: Positive: Grossly Intact Abdomen: Negative: Tender Skin: Negative: Rash Musculoskeletal: No Pain Extremities: Present: edema (BLE) - Labs and Meds Comprehensive Metabolic Panel 03/09/19 Range/Units 07:25 Sodium 136 L (137-145) mmol/L Potassium 4.2 (3.6-5.0) mmol/L Chloride 101.2 (98-107) mmol/L Carbon Dioxide 21 L (22-30) mmol/L BUN 34 H (9-20) mg/dL Creatinine 3.0 H (0.8-1.5) mg/dL Glucose 106 H (75-100) mg/dL Calcium 9.2 (8.4-10.2) mg/dL - Imaging and Cardiology EKG: report reviewed, image reviewed Echo: pending, report reviewed (06/2015 showed EF 55-60%, impaired relaxation, RVSP 32mmHg, mod MR, mod TR.) - EKG Sinus rhythms and dysrhythmias: sinus rhythm
[2019-03-09 13:00] VITALS: BP 143/67
--- NOTE | 2019-03-09 13:28 | Progress Note ---
Assessment and Plan - Patient Problems (1) Acute on chronic renal failure Current Visit: Yes Status: Chronic Qualifiers: Chronic kidney disease stage: stage 4 (severe) Plan to address problem: Patient has acute on chronic renal failure stage IV. Possibly in the setting of prerenal injury. Overall renal function has stabilized at this time. From a nephrology standpoint he is stable for discharge. I have instructed moisés castro to follow the Dr. Mccurdy in 2-3 weeks post discharge (2) Hypertensive urgency Current Visit: Yes Status: Resolved Plan to address problem: Continue on current antihypertensive regimen. We'll continue to monitor carefully. (3) Chest pain Current Visit: Yes Status: Resolved Qualifiers: Chest pain type: other chest pain Qualified Code(s): R07.89 - Other chest pain; R07.8 - Other chest pain Plan to address problem: Chest pain is resolved at this time. Cardiology recommendations reviewed. Echocardiogram results reviewed. Patient will follow up with cardiology as an outpatient. (4) Diabetes Current Visit: Yes Status: Chronic Plan to address problem: Diabetes management per primary attending. (5) Hyperlipidemia Current Visit: Yes Status: Chronic Plan to address problem: Continue current statin therapy. Subjective Date of service: 03/09/19 Principal diagnosis: chest pain, acute on chronic renal failure Interval history: No acute issues overnight. Renal ultrasound revealed only chronic changes. Overall renal function is stable. Patient is stable for discharge from a nephrology standpoint. I discussed with patient that he has to follow up with Dr. Mccurdy in 2-3 weeks post discharge. Objective - Vital Signs Vital signs: Vital Signs - 12hr 03/09/19 03/09/19 03/09/19 03:53 03:55 08:03 Temperature 98.0 F 98.2 F Pulse Rate 73 81 Respiratory 18 20 Rate Blood Pressure 123/59 163/75 O2 Sat by Pulse 97 99 Oximetry 03/09/19 03/09/19 10:27 11:59 Temperature 98.0 F Pulse Rate 77 68 Respiratory 18 Rate Blood Pressure 143/67 O2 Sat by Pulse 98 Oximetry - General Appearance General appearance: well-developed, well-nourished, appears stated age EENT: ATNC, PERRL Neck: no JVD, no thyromegaly Respiratory: Present: Clear to Ascultation, Normal Exam Cardiology: regular, S1S2 Gastrointestinal: normal, normoactive bowel sounds Integumentary: no rash, warm and dry Neurologic: no focal deficit, no asterixis, alert and oriented x3 Musculoskeletal: deferred Psychiatric: mood/affect appropriate, cooperative - Lab 03/07/19 13:46 03/09/19 07:25 Most recent lab results Calcium 9.2 mg/dL (8.4-10.2) 03/09/19 07:25 Urine Sodium 10 mmol/L 03/08/19 18:00 - Allied health notes Allied health notes reviewed: nursing Medications & Allergies - Medications Allergies/Adverse Reactions: Allergies No Known Allergies Allergy (Verified 04/25/18 14:35) Home Medications: Home Medications Medication Instructions Recorded Confirmed Last Taken Type AtorvaSTATin [Lipitor] 40 mg PO QHS 04/25/18 03/07/19 03/06/19 History Clopidogrel Bisulfate [Plavix] 75 mg PO DAILY 04/25/18 03/07/19 03/06/19 History Hydralazine HCl 50 mg PO QID 04/25/18 03/07/19 03/06/19 History Metoprolol [Lopressor] 100 mg PO QDAY 04/25/18 03/07/19 03/06/19 History ISOSORBIDE MONOnitrate [Imdur ER] 60 mg PO QDAY #30 tablet 03/03/19 03/07/19 03/06/19 Rx Losartan Potassium 100 mg PO QDAY 03/03/19 03/07/19 03/06/19 History amLODIPine [Norvasc] 10 mg PO DAILY #30 03/03/19 03/07/19 03/06/19 Rx Active Medications: Generic Name Dose Route Start Last Admin Trade Name Freq PRN Reason Stop Dose Admin Acetaminophen 650 mg 03/08/19 23:24 03/08/19 23:51 Tylenol PO 650 mg Q6H PRN Administration Pain, Moderate (4-6) Amlodipine Besylate 10 mg 03/08/19 10:00 03/09/19 09:24 Norvasc PO 10 mg DAILY [facility] Administration Aspirin 325 mg 03/08/19 10:00 03/09/19 09:24 Aspirin PO 325 mg QDAY [facility] Administration Atorvastatin Calcium 40 mg 03/07/19 22:00 03/08/19 21:20 Lipitor PO 40 mg QHS [facility] Administration Clopidogrel Bisulfate 75 mg 03/08/19 10:00 03/09/19 09:24 Plavix PO 75 mg DAILY [facility] Administration Guaifenesin 10 ml 03/08/19 10:00 Guaifenesin Dm Syrup PO Q4H PRN Cough Hydralazine HCl 50 mg 03/08/19 14:00 03/09/19 09:24 Apresoline PO 50 mg QID [facility] Administration Dextrose/Sodium Chloride 1,000 mls @ 42 mls/hr 03/07/19 21:00 03/09/19 02:14 D5/0.45ns IV 42 mls/hr DIRECT [facility] Administration Isosorbide Mononitrate 60 mg 03/08/19 10:00 03/09/19 09:24 Imdur PO 60 mg QDAY [facility] Administration Losartan Potassium 100 mg 03/08/19 10:00 03/09/19 09:24 Cozaar PO 100 mg QDAY [facility] Administration Metoprolol Succinate 100 mg 03/08/19 10:00 03/09/19 09:24 Toprol Xl PO 100 mg DAILY [facility] Administration Pantoprazole Sodium 40 mg 03/08/19 10:00 03/09/19 09:25 Protonix PO 40 mg QDAY [facility] Administration
== END 2019-03-09 14:02 | disposition home or self-care (01) | DRG 682 ==
LOC: ED 12:53 → 4A 15:04
PROVIDERS: ADMIT Internal Medicine; ATTEND Internal Medicine
DX: N17.9 Acute kidney failure, unspecified (principal); I21.A1 Myocardial infarction type 2; E87.1 Hypo-osmolality and hyponatremia; I16.0 Hypertensive urgency; N18.4 Chronic kidney disease, stage 4 (severe); E11.22 Type 2 diabetes mellitus with diabetic chronic kidney disease; E78.5 Hyperlipidemia, unspecified; R94.31 Abnormal electrocardiogram [ECG] [EKG]; I25.10 Atherosclerotic heart disease of native coronary artery without angina pectoris; I12.9 Hypertensive chronic kidney disease with stage 1 through stage 4 chronic kidney disease, or unspecified chronic kidney disease; K21.9 Gastro-esophageal reflux disease without esophagitis; G43.909 Migraine, unspecified, not intractable, without status migrainosus; Z79.899 Other long term (current) drug therapy; Z95.5 Presence of coronary angioplasty implant and graft; Z86.11 Personal history of tuberculosis
CPT/HCPCS: 36415; 71045; 76770; 80048; 80076; 81001; 82436; 82550; 83690; 83880; 84133; 84300; 84484; 85025; 93005; 93010; 93306; 96374; G0378; A9270-GY